=== PATIENT | male | born 1990 | race Two or more races ===

== ENCOUNTER 2019-09-13 17:07 | Emergency (ER) | payer OTHER ==
[2019-09-13 18:08] VITALS: BP 126/74
--- NOTE | 2019-09-13 20:42 | ER Document Report ---
HPI - HPI Time Seen by Provider: 09/13/19 20:05 Pain Level: Denies Context: Patient is a 29-year-old male that comes to the emergency department for chief complaint of cough, sore throat, sneezing, generalized body aches for the past 3 to 4 days. Patient was exposed to his coworker who tested positive for COVID- 19. Patient denies fever, vomiting, headache, chest pain, or any other complaints. He takes no daily medications, he does not smoke, he denies any past medical history. Patient's and son have the same symptoms. Patient is active duty. Past Medical History - General Information source: Patient - Social History Smoking Status: Never Smoker Frequency of alcohol use: None Drug Abuse: None Lives with: Family Family History: Reviewed & Not Pertinent - Medical History Medical History: Negative Surgical Hx: Negative - Immunizations Immunizations up to date: Yes Hx Diphtheria, Pertussis, Tetanus Vaccination: Yes Vertical Provider Document - CONSTITUTIONAL General Appearance: WD/WN, No Apparent Distress - HEENT HEENT: Atraumatic, Normocephalic. negative: Normal ENT Exam - Mild nasal congestion, unremarkable oropharyngeal exam, mild anterior and posterior cervical adenopathy. Unremarkable sinuses, unremarkable ears, unremarkable eyes. - NECK Neck: Supple - RESPIRATORY Respiratory: Breath Sounds Normal, No Respiratory Distress, Chest Non-Tender. negative: Wheezing - CARDIOVASCULAR Cardiovascular: Regular Rate, Regular Rhythm. negative: Tachycardia - GI/ABDOMEN Gastrointestinal: Abdomen Soft, Abdomen Non-Tender. negative: Abdomen Tender - BACK Back: Normal Inspection - MUSCULOSKELETAL/EXTREMETIES Musculoskeletal/Extremeties: MAEW, FROM, Non-Tender - NEURO Level of Consciousness: Awake, Alert, Appropriate Motor/Sensory: No Motor Deficit, No Sensory Deficit - DERM Integumentary: Warm, Dry, No Rash Course - Re-evaluation Re-evalutation: Patient is very well-appearing. Minimal symptoms of upper respiratory infection, multiple sick family members with the same symptoms, unremarkable vital signs. Clear lungs. I do not feel additional work-up is indicated at this time. Patient is requesting COVID-19 testing for himself and his family because of his exposure and there symptoms. This was provided. Discussed details of this, follow-up instructions, quarantine instructions, return precautions. Patient states understanding and agreement. Stable and well- appearing at time of discharge. - Vital Signs Vital signs: Temp Pulse Resp BP Pulse Ox 99.0 F 62 18 126/74 H 98 09/13/19 17:58 09/13/19 17:58 09/13/19 17:58 09/13/19 17:58 09/13/19 17:58 Discharge - Discharge Clinical Impression: Close exposure to COVID-19 virus Upper respiratory infection Qualifiers: URI type: unspecified URI Qualified Code(s): J06.9 - Acute upper respiratory infection, unspecified Condition: Stable Disposition: HOME, SELF-CARE Additional Instructions: Your evaluation at this time is reassuring. This does appear to be a viral illness and should resolve with time. You have been tested for COVID-19, see additional instructions below, you will be contacted with your results and additional instructions. Drink plenty of fluids, rest, you can take [id number] medications such as antihistamines, decongestants, Tylenol, etc. Follow-up with primary care. Return for any concerning symptoms including difficulty breathing, spiking fevers, vomiting, or any other concerning or worsening symptoms. As a person under investigation for COVID-19, the [place] Department of [employer] and Human Services (division on public health) advises you to adhere to the following guidance until your test results are reported to you. If your test result is positive, you will receive additional information from your provider and your local health department at that time. Remain at home until you are cleared by the health provider or public health authorities. Keep a log of visitors to your home, notify any visitors to your home of your isolation status. If you plan to move to a new address or leave the critical access hospital, notify the local health department in your County. Call your Doctor or seek care if you have an urgent medical need. Before seeking medical care, call him to get instructions from the provider before arriving at the medical office, clinic, or hospital. Notify them that you are being tested for the virus (COVID-19) so that arrangements can be made, as necessary, to prevent transmission to others in the healthcare setting. Next, notify the local health department in your county. If a medical emergency arises and you need to call 911, inform the first responders that you are being tested for the virus that causes COVID-19. Next, notify the local health department in your county. Forms: Return to Work
== END 2019-09-13 22:03 | disposition home or self-care (01) ==
LOC: ER 17:07
DX: J06.9 Acute upper respiratory infection, unspecified (principal); R05 Cough; J02.9 Acute pharyngitis, unspecified; R06.7 Sneezing; R09.81 Nasal congestion; R59.0 Localized enlarged lymph nodes; Z20.828 Contact with and (suspected) exposure to other viral communicable diseases
CPT/HCPCS: 99283; 87635; C9803